=== PATIENT | female | born 1990 ===

== ENCOUNTER 2017-01-30 15:57 | Emergency (ER) | payer OTHER ==
[2017-01-30 16:02] VITALS: BP 114/70; PULSE 106; RESP 20; TEMP 98.3; O2SAT 100
== END 2017-01-30 16:45 | disposition home or self-care (01) | DRG 998 ==
LOC: ED 15:57
DX: O99.619 Diseases of the digestive system complicating pregnancy, unspecified trimester (principal); K08.89 Other specified disorders of teeth and supporting structures
CPT/HCPCS: 99282

== ENCOUNTER 2017-07-04 08:43 | Emergency (ER) | payer MEDICAID, OTHER ==
[2017-07-04 08:44] VITALS: O2SAT 100
[2017-07-04 09:07] VITALS: BP 127/76; PULSE 108; RESP 20; TEMP 97.4
== END 2017-07-04 09:28 | disposition home or self-care (01) | DRG 159 ==
LOC: ED 08:43
DX: K02.9 Dental caries, unspecified (principal); K04.7 Periapical abscess without sinus
CPT/HCPCS: 99282

== ENCOUNTER 2017-08-11 10:53 | Emergency (ER) | payer MEDICAID, OTHER ==
[2017-08-11 11:39] VITALS: BP 112/73; PULSE 98; RESP 16; TEMP 96.7; O2SAT 98
== END 2017-08-11 12:04 | disposition home or self-care (01) ==
LOC: ED 10:53
DX: K08.89 Other specified disorders of teeth and supporting structures (principal); R10.9 Unspecified abdominal pain
CPT/HCPCS: 99282

== ENCOUNTER 2017-08-30 12:11 | Emergency (ER) | payer OTHER ==
[2017-08-30 12:11] VITALS: O2SAT 98
[2017-08-30 12:39] VITALS: BP 123/87; PULSE 120; RESP 20; TEMP 98.7
== END 2017-08-30 12:55 | disposition home or self-care (01) ==
LOC: ED 12:11
DX: K02.9 Dental caries, unspecified (principal)
CPT/HCPCS: 99282

== ENCOUNTER 2017-09-04 10:02 | Emergency (ER) | payer OTHER ==
[2017-09-04 10:25] VITALS: BP 127/71; PULSE 92; RESP 16; TEMP 96.9; O2SAT 100
== END 2017-09-04 10:36 | disposition home or self-care (01) ==
LOC: ED 10:02
DX: K02.9 Dental caries, unspecified (principal); Z72.0 Tobacco use
CPT/HCPCS: 99282

== ENCOUNTER 2017-09-06 10:36 | Emergency (ER) | payer OTHER ==
[2017-09-06 10:36] VITALS: O2SAT 100
[2017-09-06 11:35] VITALS: BP 149/98; PULSE 88; RESP 16; TEMP 98
== END 2017-09-06 11:55 | disposition home or self-care (01) ==
LOC: ED 10:36
DX: K02.9 Dental caries, unspecified (principal); Z76.5 Malingerer [conscious simulation]; Z91.19 Patient's noncompliance with other medical treatment and regimen; Z72.0 Tobacco use
CPT/HCPCS: 99282